=== PATIENT | male | born 1960 | race Caucasian/White ===

== ENCOUNTER 2016-07-28 02:30 | Emergency (ER) | payer BC ==
[~2016-07-28] VITALS: Ht 188 cm; Wt 100.0 kg
[~2016-07-28 02:30] MED LIST: ANDROGEL1% TD; ASPIRIN E.C. 8181 MG PO; CELEBREX 1100 MG/CAP PO; CELEBREX100 MG PO; LOPID 600M600 MG/TAB PO; LOPRESSOR50 MG PO; NEURONTIN600 MG/TAB PO; NEXIUM40 MG PO; PRILOSEC 20MG20 MG PO; PROBIOTIC-MAJOR PO; TOPROL XL 50MG50 MG PO; WELLBUTRIN SR150 M1 PO; WELLBUTRIN SR150 MG PO; glucosamine; probiotic; vit D3
[2016-07-28 02:32] VITALS: TEMP 97.7
[2016-07-28 03:28] LABS: BASO % 0.5 % (0.0-2.0); EOS # 0.3 (0.0-0.7); EOS % 4.1 % (0-4.0); GRAN # 4.5 (1.4-6.5); GRAN % 61.3 % (42.2-75.2); HEMATOCRIT 47.3 % (42.0-52.0); HEMOGLOBIN 16.2 g/dl (13.5-18.0); LYMPH # 1.9 (1.2-3.4); LYMPH % 25.7 % (20.0-51.0); MEAN CELL VOLUME 91 fl (80.0-100.0); MEAN CORPUSCULAR HEMOGLOBIN 31 pg (27.0-31.0); MEAN CORPUSCULAR HGB CONC 34 g/dl (33.0-37.0); MEAN PLATELET VOLUME 9.6 fl (7.4-10.4); MONO # 0.5 (0.1-0.6); MONO % 7.4 % (1.7-9.3); PLATELET COUNT 247 K/mm3 (130-400); RED BLOOD COUNT 5.19 M/mm3 (4.20-5.60); REDCELL DISTRIBUTION WIDTH-CV 13.1 % (11.5-14.5); WHITE BLOOD COUNT 7.3 K/mm3 (4.8-10.8)
[2016-07-28 03:31] LABS: INR 0.9 (0.8-3.0); PROTHROMBIN TIME 10.2 SECONDS (9.7-12.8)
[2016-07-28 03:34] LABS: PARTIAL THROMBOPLASTIN TIME 32.1 SECONDS (26.0-37.0)
[2016-07-28 03:39] LABS: ALANINE AMINOTRANSFERASE 55 U/L (21-72); ALBUMIN 4.2 gm/dL (3.5-5.0); ALKALINE PHOSPHATASE 101 U/L (50-136); ANION GAP 12 mmol/L (7-16); BILIRUBIN,TOTAL 0.8 mg/dL (0.0-1.0); BLOOD UREA NITROGEN 15 mg/dL (9-20); CALCIUM 9.2 mg/dL (8.4-10.2); CARBON DIOXIDE 27 mmol/L (22-30); CHLORIDE 103 mmol/L (98-107); CREATININE, serum 1.05 mg/dL (0.66-1.25); GLUCOSE 113 mg/dL (74-106); POTASSIUM 4.2 mmol/L (3.4-5.0); SODIUM 141 mmol/L (137-145); TOTAL PROTEIN 7.5 gm/dL (6.4-8.2)
[2016-07-28 03:40] LABS: C-REACTIVE PROTEIN < 0.5 mg/dL (0.0-0.9)
[2016-07-28 03:54] LABS: TROPONIN-I < 0.012 ng/mL (0.000-0.034)
[2016-07-28] MEDS ORDERED: FLEXERIL 1010 MG/TAB PO (05:41)
[2016-07-28] MEDS ORDERED: VOLTAREN 75 DR75 MG PO (05:41)
[2016-07-28 05:55] VITALS: BP 131/82; PULSE 63
== END 2016-07-28 06:11 | disposition home or self-care (01) ==
LOC: COL.ER 02:30
PROVIDERS: Emergency Medicine
DX: M54.6 Pain in thoracic spine (principal)
CPT/HCPCS: J1885; J2360; J2930; J7040; Q9967